=== PATIENT | male | born 1965 | race Caucasian/White ===

== ENCOUNTER 2017-09-22 17:22 | Emergency (ER) | payer MEDICAID ==
[~2017-09-22] VITALS: Ht 188 cm; Wt 120.2 kg
[2017-09-22 17:32] VITALS: BP_SYST 130
[2017-09-22] MEDS ORDERED: KETOROLAC TROMETHAMINE 60 MG/2 ML VIAL IM ONE (17:45)
[2017-09-22 18:13] LABS: BASOPHILS # (AUTO) 0.1 K/uL (0.0-0.2); BASOPHILS % (AUTO) 1.1 % (0.0-2.0); EOSINOPHILS # (AUTO) 0.3 K/uL (0.0-0.4); EOSINOPHILS % (AUTO) 3.2 % (0.0-4.0); HEMATOCRIT 46.2 % (36-54); HEMOGLOBIN 15.3 g/dL (14.0-18.0); LYMPHOCYTES % (AUTO) 18.8 % (20.5-51.5); MEAN CORPUSCULAR HEMOGLOBIN 29 pg (27-31); MEAN CORPUSCULAR HGB CONC 33 % (32-36); MEAN CORPUSCULAR VOLUME 88 fL (79.0-98.0); MONOCYTES # (AUTO) 0.6 K/uL (0.0-1.0); MONOCYTES % (AUTO) 5.3 % (1.7-9.3); NEUTROPHILS # (AUTO) 7.7 K/uL (1.8-7.7); NEUTROPHILS % (AUTO) 71.6 % (40.0-70.0); PLATELET COUNT (AUTO) 464 K/uL (130-430); RED BLOOD CELL COUNT(AUTO) 5.28 MIL/uL (4.2-6.2); RED CELL DISTRIBUTION WIDTH 12.1 % (9.0-15.0); WHITE BLOOD COUNT (AUTO) 10.7 K/uL (4.8-10.8)
[2017-09-22 18:26] LABS: CALCIUM 9.8 mg/dL (8.4-11.0); CREATININE 1.4 mg/dL (0.55-1.30); POTASSIUM 4.4 mmol/L (3.5-5.1)
[2017-09-22 18:31] LABS: ALBUMIN 3.6 g/dL (3.4-4.8); TOTAL BILIRUBIN 0.4 mg/dL (0.0-1.0); URIC ACID 8.7 mg/dL (2.4-7.0)
[2017-09-22 19:35] VITALS: BP_SYST 125
[2017-09-22 19:49] LABS: ERYTHROCYTE SEDIMENTATION RATE 28 MM/HR (0-15)
== END 2017-09-22 19:35 | disposition home or self-care (01) ==
LOC: SED 17:22
DX: M70.31 Other bursitis of elbow, right elbow (principal); L03.113 Cellulitis of right upper limb; M10.9 Gout, unspecified; R03.0 Elevated blood-pressure reading, without diagnosis of hypertension; J45.909 Unspecified asthma, uncomplicated; Z87.442 Personal history of urinary calculi; Z90.49 Acquired absence of other specified parts of digestive tract
CPT/HCPCS: 36415; 73080; 80053; 83605; 84550; 85025; 85651; 87040; 96372; 99285; J1885

== ENCOUNTER 2018-04-19 02:53 | Emergency (ER) | payer MEDICAID ==
[~2018-04-19] VITALS: Ht 188 cm; Wt 77.1 kg
[2018-04-19 03:04] VITALS: BP_SYST 139
[2018-04-19] MEDS ORDERED: IBUPROFEN 600 MG TABLET PO ONE (03:30)
[2018-04-19 03:59] VITALS: BP_SYST 139
== END 2018-04-19 03:59 | disposition home or self-care (01) ==
LOC: SED 02:53
DX: M10.9 Gout, unspecified (principal); J45.909 Unspecified asthma, uncomplicated
CPT/HCPCS: 99282

== ENCOUNTER 2018-04-29 15:54 | Emergency (ER) | payer MEDICAID ==
[~2018-04-29] VITALS: Ht 188 cm; Wt 117.5 kg
[2018-04-29 16:07] VITALS: BP_SYST 155
--- NOTE | 2018-04-29 16:07 | NUR ---
Pt placed in bed 8
--- NOTE | 2018-04-29 16:15 | NUR ---
Pt complains of pain to left knee and right ankle, pt states Saturday tripped over a parking block and hurt right ankle but denies KO, then the next day was jumping around in house and left knee kicked a table. There is swelling, purple discoloration to left knee but no noted erythema or selling noted to right ankle. Pt states is unable to ambulate. No other injuries/complaints per pt or noted.
--- NOTE | 2018-04-29 16:33 | NUR ---
NATHAN Marsh examining patient.
[2018-04-29] MEDS ORDERED: KETOROLAC TROMETHAMINE 60 MG/2 ML VIAL IM ONE (16:45)
--- NOTE | 2018-04-29 16:45 | NUR ---
X ray at bedside.
--- NOTE | 2018-04-29 16:53 | NUR ---
Pain medication was given to pt, tolerated well
[2018-04-29] MEDS ORDERED: HYDROcodone/ACETAMIN 7.5-325 MG TAB PO ONE (17:15)
--- NOTE | 2018-04-29 17:38 | NUR ---
Patient given written and verbal discharge instructions and verbalizes understanding. ER MD discussed with patient the results and treatment provided. Patient in stable condition. ID arm band removed. Rx of naproxen and tramadol given. Patient educated on pain management and to follow up with PMD. Pain Scale 4. Keren JASMINE aware, pain medication given in Er and prescription was sent home. Pt states will take medication at home. Opportunity for questions provided and answered.
[2018-04-29 17:43] VITALS: BP_SYST 145
== END 2018-04-29 17:43 | disposition home or self-care (01) ==
LOC: SED 15:54
DX: S83.92XA Sprain of unspecified site of left knee, initial encounter (principal); S93.401A Sprain of unspecified ligament of right ankle, initial encounter; F17.210 Nicotine dependence, cigarettes, uncomplicated; R03.0 Elevated blood-pressure reading, without diagnosis of hypertension; J45.909 Unspecified asthma, uncomplicated; Z71.6 Tobacco abuse counseling; Z90.49 Acquired absence of other specified parts of digestive tract; W01.0XXA Fall on same level from slipping, tripping and stumbling without subsequent striking against object, initial encounter; Y93.89 Activity, other specified; Y92.89 Other specified places as the place of occurrence of the external cause; Y99.8 Other external cause status
CPT/HCPCS: 73564; 73610; 96372; 99284; J1885

== ENCOUNTER 2021-05-02 14:09 | Emergency (ER) | payer MEDICAID ==
[~2021-05-02] VITALS: Ht 188 cm; Wt 124.7 kg
[2021-05-02 14:20] VITALS: BP_SYST 117
[2021-05-02 14:43] LABS: BASOPHILS # (AUTO) 0.1 K/uL (0.0-0.2); BASOPHILS % (AUTO) 0.9 % (0.0-2.0); EOSINOPHILS # (AUTO) 0.5 K/uL (0.0-0.4); EOSINOPHILS % (AUTO) 5.4 % (0.0-4.0); HEMATOCRIT 44.1 % (36-54); HEMOGLOBIN 15.3 g/dL (14.0-18.0); LYMPHOCYTES # (AUTO) 1.9 K/uL (1.0-5.5); LYMPHOCYTES % (AUTO) 19.8 % (20.5-51.5); MEAN CORPUSCULAR HEMOGLOBIN 31 pg (27-31); MEAN CORPUSCULAR HGB CONC 35 % (32-36); MEAN CORPUSCULAR VOLUME 89 fL (79.0-98.0); MONOCYTES # (AUTO) 0.6 K/uL (0.0-1.0); MONOCYTES % (AUTO) 6.3 % (1.7-9.3); NEUTROPHILS # (AUTO) 6.4 K/uL (1.8-7.7); NEUTROPHILS % (AUTO) 67.6 % (40.0-70.0); PLATELET COUNT (AUTO) 290 K/uL (130-430); RED BLOOD CELL COUNT(AUTO) 4.95 MIL/uL (4.2-6.2); RED CELL DISTRIBUTION WIDTH 12.9 % (9.0-15.0); WHITE BLOOD COUNT (AUTO) 9.4 K/uL (4.8-10.8)
[2021-05-02] MEDS ORDERED: KETOROLAC TROMETHAMINE 30 MG VIAL IVP ONE (14:45)
[2021-05-02 15:02] LABS: CALCIUM 9.6 mg/dL (8.4-11.0); CREATININE 1.45 mg/dL (0.55-1.30); POTASSIUM 4.1 mmol/L (3.5-5.1)
[2021-05-02 15:08] LABS: ALBUMIN 3.5 g/dL (3.4-4.8); TOTAL BILIRUBIN 0.4 mg/dL (0.0-1.0)
[2021-05-02 16:41] LABS: BILIRUBIN,URINE NEGATIVE (NEGATIVE); BLOOD, URINE NEGATIVE (NEGATIVE); CLARITY/URINE CLEAR (CLEAR); COLOR,URINE YELLOW (YELLOW); GLUCOSE,URINE NEGATIVE (NEGATIVE); KETONES,URINE NEGATIVE (NEGATIVE); LEUKOCYTE ESTERASE ,URINE NEGATIVE (NEGATIVE); NITRITE, URINE NEGATIVE (NEGATIVE); PH,URINE 5.5 (5.0-8.0); PROTEIN URINE NEGATIVE (NEGATIVE); UROBILINOGEN,URINE 0.2 (0.2-1.0)
[2021-05-02 17:03] VITALS: BP_SYST 117
== END 2021-05-02 17:03 | disposition home or self-care (01) ==
LOC: SED 14:09
DX: R10.9 Unspecified abdominal pain (principal); J45.909 Unspecified asthma, uncomplicated
CPT/HCPCS: 36415; 74176; 76376; 80053; 81003; 85025; 96374; 99284; J1885

== ENCOUNTER 2021-07-06 20:06 | Emergency (ER) | payer MEDICAID ==
[~2021-07-06] VITALS: Ht 188 cm; Wt 120.2 kg
[2021-07-06 20:27] VITALS: BP_SYST 132
[2021-07-06] MEDS ORDERED: IBUPROFEN 600 MG TABLET PO ONE (20:45)
[2021-07-06] MEDS ORDERED: IBUP-1969 PO (21:12)
[2021-07-06 21:39] VITALS: BP_SYST 132
--- NOTE | 2021-07-06 21:40 | NUR ---
Patient given written and verbal discharge instructions and verbalizes understanding. DR.SING NATHAN SENA discussed with patient the results and treatment provided. Patient in stable condition. ID arm band removed. Rx of MOTRIN given. Patient educated on pain management and to follow up with PMD. Pain Scale 0/10. Opportunity for questions provided and answered. Medication side effect fact sheet provided.
--- NOTE | 2021-07-06 21:42 | NUR ---
Patient discharged by RN Lizbeth, walked to ED door with steady gait. VS stable. Needs attended, offered to have a voucher for transport but refused as the patient stated he does not want to wait.
== END 2021-07-06 21:42 | disposition home or self-care (01) ==
LOC: SED 20:06
DX: S63.501A Unspecified sprain of right wrist, initial encounter (principal); J45.909 Unspecified asthma, uncomplicated; X50.1XXA Overexertion from prolonged static or awkward postures, initial encounter; Y93.89 Activity, other specified; Y92.89 Other specified places as the place of occurrence of the external cause; Y99.8 Other external cause status
CPT/HCPCS: 99283